=== PATIENT | male | born 1960 | race Caucasian/White ===

== ENCOUNTER 2020-10-04 13:07 | Inpatient (IN) | payer OTHER ==
[~2020-10-04] VITALS: Ht 180.3 cm; Wt 70.6 kg
[~2020-10-04 13:07] MED LIST: AMIODARONE HCL200 MG PO; ASPIR 8181 MG PO; ATORVASTATIN CA20 MG PO; AUGMENTIN 875-1 EACH PO; BUSPAR 10MG10 MG PO; CATAPRES 0.1MG0.1 MG PO; CEFDINIR300 MG PO; CLOPIDOGREL75 MG PO; COREG 25MG TAB25 MG PO; CYMBALTA60 MG PO; DESYREL 50 MG T50 MG PO; DILTIAZEM 24HR240 M1 PO; EFFEXOR XR 75 M75 MG PO; EFFEXOR XR75 MG PO; FERROUS SULFAT325 M2 PO; FLEXERIL 10 MG10 MG PO; LIPITOR TAB 2020 MG PO; LOPRESSOR 50 MG50 MG PO; MICROZIDE12.5 MG PO; NITROSTAT0.4 MG SL; NORCO 5-325 TA1 EACH PO; NORFLEX 100 MG100 MG PO; NORVASC5 MG PO; OMNICEF 300 MG300 MG PO; PHOSLO 667 MG667 MG PO; PLAVIX 75 MG TA75 MG PO; PROTONIX20 MG PO; PROTONIX40 MG PO; PROVENTIL HFA 61 INH INH; PROZAC40 MG PO; RANITIDINE HCL300 M1 PO; RENVELA800 MG PO; ROBAXIN-750750 MG PO; SODIUM BICARBO650 M1 PO; SYMBICORT 160-1 INHA INH; VENTOLIN HFA 66.7 GM INH; VITAMIN D31000 UNI1 PO; VITAMIN D325 MCG PO; Voltaren Gel 1 % TOP; WELLBUTRIN 100100 MG PO
[2020-10-04 13:49] LABS: HEMOGLOBIN 11.7 gm/dl (14.0-17.5); RED BLOOD COUNT 3.45 M/UL (4.20-5.50); WHITE BLOOD COUNT 10.5 K/UL (4.5-11.0)
[2020-10-04] MEDS ORDERED: COREG 25MG TAB25 MG PO (18:19)
[2020-10-05 05:32] LABS: HEMOGLOBIN 11.7 gm/dl (14.0-17.5); RED BLOOD COUNT 3.42 M/UL (4.20-5.50); WHITE BLOOD COUNT 17.2 K/UL (4.5-11.0)
[2020-10-06 05:41] LABS: HEMOGLOBIN 10.1 gm/dl (14.0-17.5)
[2020-10-06 05:43] LABS: RED BLOOD COUNT 3.01 M/UL (4.20-5.50); WHITE BLOOD COUNT 10.8 K/UL (4.5-11.0)
[2020-10-06 12:42] LABS: HEMOGLOBIN 10.7 gm/dl (14.0-17.5); RED BLOOD COUNT 3.12 M/UL (4.20-5.50); WHITE BLOOD COUNT 11.8 K/UL (4.5-11.0)
[2020-10-07 05:58] LABS: HEMOGLOBIN 9.8 gm/dl (14.0-17.5); RED BLOOD COUNT 2.96 M/UL (4.20-5.50); WHITE BLOOD COUNT 10.7 K/UL (4.5-11.0)
[2020-10-07 13:31] LABS: RED BLOOD COUNT 2.94 M/UL (4.20-5.50); WHITE BLOOD COUNT 11.2 K/UL (4.5-11.0)
[2020-10-08 06:18] LABS: HEMOGLOBIN 8.9 gm/dl (14.0-17.5); WHITE BLOOD COUNT 8.7 K/UL (4.5-11.0)
[2020-10-08 06:23] LABS: RED BLOOD COUNT 2.62 M/UL (4.20-5.50)
[2020-10-09 04:03] LABS: HEMOGLOBIN 8.7 gm/dl (14.0-17.5); RED BLOOD COUNT 2.63 M/UL (4.20-5.50); WHITE BLOOD COUNT 8.1 K/UL (4.5-11.0)
--- NOTE | 2020-10-09 15:13 | NUR ---
PATIENT STARTED DIALYSIS AT 1330 ON 10/09/2020.
[2020-10-10 04:01] LABS: HEMOGLOBIN 10.1 gm/dl (14.0-17.5); RED BLOOD COUNT 3.04 M/UL (4.20-5.50); WHITE BLOOD COUNT 8.7 K/UL (4.5-11.0)
--- NOTE | 2020-10-10 09:19 | NUR ---
STARTED DIALYSIS AT 0915 ON 10/10/2020
[2020-10-11 06:23] LABS: HEMOGLOBIN 10.6 gm/dl (14.0-17.5); RED BLOOD COUNT 3.2 M/UL (4.20-5.50)
[2020-10-11 06:27] LABS: WHITE BLOOD COUNT 13.7 K/UL (4.5-11.0)
[2020-10-12 06:13] LABS: HEMOGLOBIN 11.4 gm/dl (14.0-17.5); RED BLOOD COUNT 3.44 M/UL (4.20-5.50); WHITE BLOOD COUNT 12.3 K/UL (4.5-11.0)
[2020-10-13 03:37] LABS: HEMOGLOBIN 11.3 gm/dl (14.0-17.5); RED BLOOD COUNT 3.36 M/UL (4.20-5.50); WHITE BLOOD COUNT 11.4 K/UL (4.5-11.0)
[2020-10-14 04:45] LABS: HEMOGLOBIN 11.2 gm/dl (14.0-17.5); RED BLOOD COUNT 3.33 M/UL (4.20-5.50); WHITE BLOOD COUNT 12.3 K/UL (4.5-11.0)
[2020-10-15 05:28] LABS: HEMOGLOBIN 10.7 gm/dl (14.0-17.5); RED BLOOD COUNT 3.25 M/UL (4.20-5.50); WHITE BLOOD COUNT 12.2 K/UL (4.5-11.0)
[2020-10-16 02:57] LABS: HEMOGLOBIN 10.6 gm/dl (14.0-17.5); RED BLOOD COUNT 3.2 M/UL (4.20-5.50); WHITE BLOOD COUNT 14.1 K/UL (4.5-11.0)
[2020-10-17 10:55] LABS: HEMOGLOBIN 10.5 gm/dl (14.0-17.5); RED BLOOD COUNT 3.17 M/UL (4.20-5.50); WHITE BLOOD COUNT 12.4 K/UL (4.5-11.0)
[2020-10-18 05:42] LABS: HEMOGLOBIN 10.8 gm/dl (14.0-17.5); RED BLOOD COUNT 3.24 M/UL (4.20-5.50); WHITE BLOOD COUNT 12.1 K/UL (4.5-11.0)
[2020-10-20 05:27] LABS: HEMOGLOBIN 10.4 gm/dl (14.0-17.5); RED BLOOD COUNT 3.28 M/UL (4.20-5.50); WHITE BLOOD COUNT 12.3 K/UL (4.5-11.0)
[2020-10-21 09:16] LABS: HEMOGLOBIN 10.7 gm/dl (14.0-17.5); RED BLOOD COUNT 3.23 M/UL (4.20-5.50)
[2020-10-23 06:09] LABS: HEMOGLOBIN 10.9 gm/dl (14.0-17.5); RED BLOOD COUNT 3.33 M/UL (4.20-5.50); WHITE BLOOD COUNT 10.9 K/UL (4.5-11.0)
[2020-10-24 02:35] LABS: HEMOGLOBIN 10.9 gm/dl (14.0-17.5); RED BLOOD COUNT 3.38 M/UL (4.20-5.50)
[2020-10-24 02:50] LABS: WHITE BLOOD COUNT 15.5 K/UL (4.5-11.0)
[2020-10-25 03:35] LABS: RED BLOOD COUNT 3.34 M/UL (4.20-5.50); WHITE BLOOD COUNT 11.8 K/UL (4.5-11.0)
[2020-10-25 19:10] LABS: BODY FLUID SOURCE PLEURAL; MONONUCLEAR CELLS 92.2 (75-100); POLYMORPHONUCLEAR % 7.8 (0-25); RBC (AUTOMATED) 700 (0-100000); WBC (AUTOMATED) 294 (0-500)
[2020-10-25 19:11] LABS: LDH, BODY FLUID 135 U/L; TOTAL PROTEIN, BODY FLUID 2.3 gm/dL
--- NOTE | 2020-10-25 22:05 | NUR ---
REPORT TO AMANDA BARTHOLOMEW ON PT
[2020-10-26 03:16] LABS: HEMOGLOBIN 10.7 gm/dl (14.0-17.5); RED BLOOD COUNT 3.24 M/UL (4.20-5.50); WHITE BLOOD COUNT 14.1 K/UL (4.5-11.0)
[2020-10-26 17:08] LABS: HEMOGLOBIN 10.8 gm/dl (14.0-17.5); RED BLOOD COUNT 3.28 M/UL (4.20-5.50); WHITE BLOOD COUNT 12.5 K/UL (4.5-11.0)
[2020-10-27 09:32] LABS: HEMOGLOBIN 10.9 gm/dl (14.0-17.5); RED BLOOD COUNT 3.33 M/UL (4.20-5.50); WHITE BLOOD COUNT 11.7 K/UL (4.5-11.0)
[2020-10-28 03:43] LABS: HEMOGLOBIN 10.8 gm/dl (14.0-17.5); RED BLOOD COUNT 3.25 M/UL (4.20-5.50); WHITE BLOOD COUNT 12.7 K/UL (4.5-11.0)
[2020-10-29 10:59] LABS: HEMOGLOBIN 11.1 gm/dl (14.0-17.5); RED BLOOD COUNT 3.41 M/UL (4.20-5.50); WHITE BLOOD COUNT 12.1 K/UL (4.5-11.0)
--- NOTE | 2020-10-29 18:19 | NUR ---
DIALYSIS SHUNT COVERED WITH EXTRA GAUZE. OOZING SMALL AMOUNT OF BLOOD. APPROVED BY DR. LOCKETT
[2020-10-30 04:11] LABS: HEMOGLOBIN 10.9 gm/dl (14.0-17.5); RED BLOOD COUNT 3.35 M/UL (4.20-5.50); WHITE BLOOD COUNT 12.2 K/UL (4.5-11.0)
[2020-10-31 04:51] LABS: HEMOGLOBIN 10.9 gm/dl (14.0-17.5); RED BLOOD COUNT 3.4 M/UL (4.20-5.50); WHITE BLOOD COUNT 11.8 K/UL (4.5-11.0)
[2020-11-01 02:35] LABS: HEMOGLOBIN 9.8 gm/dl (14.0-17.5); WHITE BLOOD COUNT 9.7 K/UL (4.5-11.0)
[2020-11-01 02:43] LABS: RED BLOOD COUNT 3.02 M/UL (4.20-5.50)
[2020-11-02 04:31] LABS: HEMOGLOBIN 10.4 gm/dl (14.0-17.5); RED BLOOD COUNT 3.16 M/UL (4.20-5.50); WHITE BLOOD COUNT 11.3 K/UL (4.5-11.0)
[2020-11-03 03:01] LABS: HEMOGLOBIN 10.4 gm/dl (14.0-17.5); RED BLOOD COUNT 3.22 M/UL (4.20-5.50); WHITE BLOOD COUNT 10.3 K/UL (4.5-11.0)
[2020-11-04 03:50] LABS: HEMOGLOBIN 10.1 gm/dl (14.0-17.5); RED BLOOD COUNT 3.14 M/UL (4.20-5.50); WHITE BLOOD COUNT 11.8 K/UL (4.5-11.0)
[2020-11-05 03:56] LABS: RED BLOOD COUNT 3.18 M/UL (4.20-5.50); WHITE BLOOD COUNT 16.2 K/UL (4.5-11.0)
[2020-11-07 03:16] LABS: HEMOGLOBIN 9.4 gm/dl (14.0-17.5); RED BLOOD COUNT 2.94 M/UL (4.20-5.50)
[2020-11-09 03:21] LABS: HEMOGLOBIN 8.2 gm/dl (14.0-17.5); WHITE BLOOD COUNT 11.7 K/UL (4.5-11.0)
[2020-11-09 03:24] LABS: RED BLOOD COUNT 2.52 M/UL (4.20-5.50)
[2020-11-12 02:39] LABS: HEMOGLOBIN 8.1 gm/dl (14.0-17.5); RED BLOOD COUNT 2.48 M/UL (4.20-5.50); WHITE BLOOD COUNT 7.6 K/UL (4.5-11.0)
--- NOTE | 2020-11-13 13:54 | NUR ---
PT HAS A SMALL PLACE ON HIS BOTTOM. THE SPOT IS OPEN IN THE CENTER WITH THE SIZE OF A PINCLE ERASER IN THE MIDDLE.
--- NOTE | 2020-11-13 19:31 | NUR ---
PT HAD BOTH BILATERAL UPPER EXTREMITIES ARE SWOLLEN 3X FROM [place]. WAS NOTIFIED ABOUT THE PATIENT HURTING AND HAVING PROBLEMS MOVING ARMS. THE PT WAS COMPLAINING OF PAIN IN THE IV. WHEN HE WENT DOWN TO CT I MENTIONED THAT I WAS NOT SURE THAT HIS IV WAS WORKING. WHICH I TOLD THEM ABOUT. THEY TOOK HIM DOWN AND SAID THEY TRIED TO PUSH GILBERTO THROUGH THE IV AND HE SCREAMED BECAUSE IT WAS HURTING HIM. ONCE HE CAME BACK WE DCd HIS IV IN HIS UPPER RIGHT ARM, AND FLUID CAME OUT OF IT. THERE WAS NOT ANY BLOOD THAT CAME OUT OF THE INCERTION SITE. DR. GUTIERREZ WAS CONSULTED TO SEE IF HE HAD ANY BLOOD CLOTS IN HIS ARMS. I TOLD DOCTOR BRENDA ABOUT HER NEW CONSULT. THERE WAS NO IV ACCESS SO WE CONSULTED TO PUT IN A CENTERAL LINE. I DID NOT BELIEVE THAT THERE WAS A GOOD CHANCE FOR US TO GET A IV IN HIS ARMS BECAUSE THEY WERE SO SWOLLEN. I MENTIONED IT TO JESUS AND SHE SAID TO CONSULT LAKESHA FOR A CENTERAL LINE. I CALLED AND ALERTED OF HIS NEW CONSULT AND WHAT IT WAS FOR. HE CAME UP AND STARTED TO GET READY FOR THE PLACEMENT OF THE CENTRAL LINE. I GOT TELEPHONE CONSENT BECAUSE THE PATIENT HAS BEEN DISORIENTED. I CALLED HIS DAUGHTER STEPHEN TO GET TELEPHONE CONSENT FOR THE CENTRAL LINE. THE CENTRAL LINE WAS PLACED IN THE RIGHT JUGULAR VEIN. THERE WAS NO PROBLEMS AND THE PATIENT TOLERATED IT WELL. FIFTEEN MINUTES AFTER THE PATIENT COMPLAINED OF PAIN AND HIS BODY WAS BURNING ALL OVER. GRACIELA CALLED AND GOT A ORDER FOR BENADRLY AND MORPHINE TO SEE IF IT HELPED. ONCE I GAVE IT TO THE PATIENT HE DID NOT COMPLAIN OF ANY THING ONCE IT WAS GIVEN. I GAVE HIM 15 MINUTES AND CHECKED ON HIM AGAIN AND HE MENTIONED HE FELT BETTER BUT WAS STILL FEELING WEIRD.
[2020-11-15 04:27] LABS: HEMOGLOBIN 9.5 gm/dl (14.0-17.5); RED BLOOD COUNT 2.95 M/UL (4.20-5.50); WHITE BLOOD COUNT 8.5 K/UL (4.5-11.0)
[2020-11-16 03:52] LABS: HEMOGLOBIN 8.8 gm/dl (14.0-17.5); WHITE BLOOD COUNT 10.2 K/UL (4.5-11.0)
[2020-11-16 03:56] LABS: RED BLOOD COUNT 2.65 M/UL (4.20-5.50)
[2020-11-17 04:13] LABS: HEMOGLOBIN 8.3 gm/dl (14.0-17.5); RED BLOOD COUNT 2.56 M/UL (4.20-5.50); WHITE BLOOD COUNT 8.9 K/UL (4.5-11.0)
[2020-11-17] MEDS ORDERED: CLOPIDOGREL75 MG PO (11:21)
[2020-11-17] MEDS ORDERED: AMIODARONE HCL200 MG PO (11:21)
[2020-11-17] MEDS ORDERED: ASPIRIN81 MG PO (11:21)
[2020-11-17] MEDS ORDERED: MIDODRINE HCL2.5 MG PO (11:21)
[2020-11-17] MEDS ORDERED: PROTONIX 40 MG40 M1 PO (11:21)
[2020-11-17] MEDS ORDERED: ATORVASTATIN CA20 MG PO (11:21)
[2020-11-17] MEDS ORDERED: LOPRESSOR 25 MG25 MG PO (11:21)
[2020-11-17] MEDS ORDERED: ELIQUIS 2.5 MG2.5 MG PO (11:21)
== END 2020-11-18 15:55 | DRG 246 ==
LOC: ER1 13:07 → CCU 16:51 → M/S 16:51 → PROG CARE 16:51 → CDU 16:51 → M/S 23:05 → CCU 23:06 → PROG CARE 10-23 16:08 → M/S 11-13 20:40
PROVIDERS: Emergency Medicine; Family Medicine; Internal Medicine; Internal Medicine Infectious Disease; Internal Medicine Interventional Cardiology; Internal Medicine Nephrology; Internal Medicine Pulmonary Disease; ADMIT Internal Medicine
PROC: 027035Z Dilation of Coronary Artery, One Artery with Two Drug-eluting Intraluminal Devices, Percutaneous Approach (ICD-10-PCS; principal; 2020-10-04)
PROC: 4A023N7 Measurement of Cardiac Sampling and Pressure, Left Heart, Percutaneous Approach (ICD-10-PCS; 2020-10-04)
PROC: B211YZZ Fluoroscopy of Multiple Coronary Arteries using Other Contrast (ICD-10-PCS; 2020-10-04)
PROC: 4A0335C Measurement of Arterial Flow, Coronary, Percutaneous Approach (ICD-10-PCS; 2020-10-04)
PROC: 0BH17EZ Insertion of Endotracheal Airway into Trachea, Via Natural or Artificial Opening (ICD-10-PCS; 2020-10-04)
PROC: 5A1955Z Respiratory Ventilation, Greater than 96 Consecutive Hours (ICD-10-PCS; 2020-10-04)
PROC: 5A09457 Assistance with Respiratory Ventilation, 24-96 Consecutive Hours, Continuous Positive Airway Pressure (ICD-10-PCS; 2020-10-04)
PROC: 05HN33Z Insertion of Infusion Device into Left Internal Jugular Vein, Percutaneous Approach (ICD-10-PCS; 2020-10-04)
PROC: 5A1D70Z Performance of Urinary Filtration, Intermittent, Less than 6 Hours Per Day (ICD-10-PCS; 2020-10-05)
PROC: 5A1D70Z Performance of Urinary Filtration, Intermittent, Less than 6 Hours Per Day (ICD-10-PCS; 2020-10-06)
PROC: 0BH17EZ Insertion of Endotracheal Airway into Trachea, Via Natural or Artificial Opening (ICD-10-PCS; 2020-10-07)
PROC: 5A1D70Z Performance of Urinary Filtration, Intermittent, Less than 6 Hours Per Day (ICD-10-PCS; 2020-10-10)
PROC: 5A1D70Z Performance of Urinary Filtration, Intermittent, Less than 6 Hours Per Day (ICD-10-PCS; 2020-10-14)
PROC: 5A1D70Z Performance of Urinary Filtration, Intermittent, Less than 6 Hours Per Day (ICD-10-PCS; 2020-10-16)
PROC: 5A1D70Z Performance of Urinary Filtration, Intermittent, Less than 6 Hours Per Day (ICD-10-PCS; 2020-10-18)
PROC: 5A1D70Z Performance of Urinary Filtration, Intermittent, Less than 6 Hours Per Day (ICD-10-PCS; 2020-10-19)
PROC: 5A1D70Z Performance of Urinary Filtration, Intermittent, Less than 6 Hours Per Day (ICD-10-PCS; 2020-10-21)
PROC: 3E0G76Z Introduction of Nutritional Substance into Upper GI, Via Natural or Artificial Opening (ICD-10-PCS; 2020-10-23)
PROC: 0DH63UZ Insertion of Feeding Device into Stomach, Percutaneous Approach (ICD-10-PCS; 2020-10-23)
PROC: 5A1D70Z Performance of Urinary Filtration, Intermittent, Less than 6 Hours Per Day (ICD-10-PCS; 2020-10-24)
PROC: 0W9B30Z Drainage of Left Pleural Cavity with Drainage Device, Percutaneous Approach (ICD-10-PCS; 2020-10-25)
PROC: 5A1D70Z Performance of Urinary Filtration, Intermittent, Less than 6 Hours Per Day (ICD-10-PCS; 2020-10-26)
PROC: 5A1D70Z Performance of Urinary Filtration, Intermittent, Less than 6 Hours Per Day (ICD-10-PCS; 2020-10-28)
PROC: 5A1D70Z Performance of Urinary Filtration, Intermittent, Less than 6 Hours Per Day (ICD-10-PCS; 2020-10-30)
PROC: 5A1D70Z Performance of Urinary Filtration, Intermittent, Less than 6 Hours Per Day (ICD-10-PCS; 2020-10-31)
PROC: 5A1D70Z Performance of Urinary Filtration, Intermittent, Less than 6 Hours Per Day (ICD-10-PCS; 2020-11-02)
PROC: 5A1D70Z Performance of Urinary Filtration, Intermittent, Less than 6 Hours Per Day (ICD-10-PCS; 2020-11-05)
PROC: 5A1D70Z Performance of Urinary Filtration, Intermittent, Less than 6 Hours Per Day (ICD-10-PCS; 2020-11-07)
PROC: 5A1D70Z Performance of Urinary Filtration, Intermittent, Less than 6 Hours Per Day (ICD-10-PCS; 2020-11-09)
PROC: 5A1D70Z Performance of Urinary Filtration, Intermittent, Less than 6 Hours Per Day (ICD-10-PCS; 2020-11-14)
PROC: 5A1D70Z Performance of Urinary Filtration, Intermittent, Less than 6 Hours Per Day (ICD-10-PCS; 2020-11-16)
PROC: 5A1D70Z Performance of Urinary Filtration, Intermittent, Less than 6 Hours Per Day (ICD-10-PCS; 2020-11-18)
DX: I21.09 ST elevation (STEMI) myocardial infarction involving other coronary artery of anterior wall (principal); N18.6 End stage renal disease; I50.43 Acute on chronic combined systolic (congestive) and diastolic (congestive) heart failure; J96.21 Acute and chronic respiratory failure with hypoxia; G93.41 Metabolic encephalopathy; J15.5 Pneumonia due to Escherichia coli; J15.212 Pneumonia due to Methicillin resistant Staphylococcus aureus; I46.9 Cardiac arrest, cause unspecified; R57.0 Cardiogenic shock; E43 Unspecified severe protein-calorie malnutrition; I13.2 Hypertensive heart and chronic kidney disease with heart failure and with stage 5 chronic kidney disease, or end stage renal disease; I47.2 Ventricular tachycardia; I48.92 Unspecified atrial flutter; J90 Pleural effusion, not elsewhere classified; G93.1 Anoxic brain damage, not elsewhere classified; I69.351 Hemiplegia and hemiparesis following cerebral infarction affecting right dominant side; K56.7 Ileus, unspecified; Z20.822 Contact with and (suspected) exposure to COVID-19; F17.210 Nicotine dependence, cigarettes, uncomplicated; I73.9 Peripheral vascular disease, unspecified; E88.09 Other disorders of plasma-protein metabolism, not elsewhere classified; I48.0 Paroxysmal atrial fibrillation; I08.2 Rheumatic disorders of both aortic and tricuspid valves; I25.10 Atherosclerotic heart disease of native coronary artery without angina pectoris; D64.9 Anemia, unspecified; R74.01 Elevation of levels of liver transaminase levels; D72.829 Elevated white blood cell count, unspecified; E87.5 Hyperkalemia; K59.00 Constipation, unspecified; I95.9 Hypotension, unspecified; I27.20 Pulmonary hypertension, unspecified; Z68.36 Body mass index [BMI] 36.0-36.9, adult; Z91.15 Patient's noncompliance with renal dialysis; Z99.2 Dependence on renal dialysis; Z86.010 Personal history of colon polyps; Z82.49 Family history of ischemic heart disease and other diseases of the circulatory system; Z79.01 Long term (current) use of anticoagulants; Z79.899 Other long term (current) drug therapy
CPT/HCPCS: ECHO; 31500; 36415; 36556; 36600; 51702; 70450; 71045; 71250; 74018; 74230; 80048; 80053; 80061; 81001; 82140; 82150; 82533; 82550; 82553; 82607; 82746; 82800; 82803; 82945; 82962; 83605; 83615; 83690; 83735; 83986; 84100; 84132; 84157; 84439; 84443; 84484; 85007; 85025; 85027; 85347; 85610; 85730; 87040; 87070; 87077; 87086; 87186; 87205; 89051; 90935; 90937; 92526; 92610; 92611-GN; 92950; 93005; 93306; 93971; 94002; 94003; 94640; 94660; 94664; 94760; 96365; 96375; 97110; 97110-GP-CQ; 97162; 97167; 97530; 97530-GP-CQ; 99285; A6212; C1725; C1729; C1757; C1769; C1874; C1887; C9113; C9600; J0171; J0360; J0461; J1170; J1265; J1335; J1644; J1940; J2060; J2250; J2370; J2405; J2543; J2704; J3010; J3246; J3475; J7030; J7040; J7050; J7070; P9047; Q9965; U0002